=== PATIENT | female | born 1940 | race Caucasian/White ===

== ENCOUNTER 2024-09-24 05:32 | Inpatient (IN) ==
[2024-09-24] MEDS: ONDANSETRON 4 MG/2 ML VIAL IV ONE (05:53)
[2024-09-24 06:13] LABS: Basophils # (Auto) 0.02 K/mcL (0.00-0.30); Basophils % (Auto) 0.2 % (0.0-2.0); Eosinophils # (Auto) 0.15 K/mcL (0.00-0.70); Eosinophils % (Auto) 1.5 % (0.0-7.0); Hematocrit 28.3 % (34.1-44.9); Hemoglobin 9.4 g/dL (11.2-15.7); Lymphocytes # (Auto) 0.48 K/mcL (1.50-4.80); Lymphocytes % (Auto) 4.8 % (15.5-49.0); Mean Cell Volume 92.2 fL (80.0-100.0); Mean Corpuscular HGB Conc 33.2 g/dL (31.0-36.0); Mean Platelet Volume 9.4 fL (8.8-12.5); Monocytes # (Auto) 1.37 K/mcL (0.10-0.90); Monocytes % (Auto) 13.8 % (1.0-12.0); Neutrophils % (Auto) 79.3 % (38.0-78.0); Platelet Count 167 K/mcL (140-440); RBC 3.07 M/mcL (3.59-5.38); Red Cell Distribution Width 13.6 % (11.5-14.5); WBC 9.9 K/mcL (4.5-11.0)
[2024-09-24 07:13] LABS: ALT/SGPT < 5 U/L (<40); AST/SGOT 50 U/L (<32); Albumin 3.6 gm/dL (3.2-5.2); Albumin/Globulin Ratio 1.4 (1.0-2.3); Alkaline Phosphatase 71 U/L (39-117); Bilirubin,Total 0.4 mg/dL (0.1-1.0); Blood Urea Nitrogen 17 mg/dL (8-23); Calcium 9.1 mg/dL (8.6-10.4); Carbon Dioxide 24 mmol/L (22-30); Chloride 83 mmol/L (96-108); Globulin 2.5 gm/dL (2.2-3.7); Glomerular Filtration Rate 32; Glucose 89 mg/dL (70-105); Potassium 4.9 mmol/L (3.3-5.1); Sodium 118 mmol/L (133-145)
[2024-09-24 08:04] LABS: POC Calcium, Ionized 1.14 (1.16-1.32); POC Creatinine 1.6 (0.6-1.2); POC Potassium 4.7 (3.3-5.1)
[2024-09-24 10:53] LABS: Thyroid Stimulating Hormone 1.53 uIU/mL (0.27-5.01)
[2024-09-24] MEDS: oxyCODONE IR 5 MG TABLET PO ONE (11:48)
[2024-09-24 12:07] LABS: Sodium 121 mmol/L (133-145)
[2024-09-24] MEDS ORDERED: ONDANSETRON 4 MG/2 ML VIAL IV PRN (13:29)
[2024-09-24] MEDS ORDERED: POLYETHYLENE GLYCOL 3350 17 GM PACKET PO PRN (13:29)
[2024-09-24] MEDS ORDERED: BETAMETHASONE VALERATE 0.1% TOPICAL PRN (13:49)
[2024-09-24] MEDS: 0.9 % SODIUM CHLORIDE 10 ML SYRINGE IV SCH (14:15)
[2024-09-24] MEDS: PANTOPRAZOLE 40 MG VIAL IV ONE (14:15)
[2024-09-24] MEDS: METHOCARBAMOL 500 MG TABLET PO PRN (14:27)
[2024-09-24] MEDS: ACETAMINOPHEN 500 MG TABLET PO SCH (14:27)
[2024-09-24 14:33] LABS: Sodium 123 mmol/L (133-145)
[2024-09-24] MEDS: MUPIROCIN OINT 2% 22GM TOPICAL SCH (20:20)
[2024-09-24] MEDS: PANTOPRAZOLE 40 MG VIAL IV SCH (20:52)
[2024-09-24] MEDS: DOCUSATE SODIUM 100 MG CAPSULE PO SCH (20:52)
[2024-09-24] MEDS: ASPIRIN 81 MG TAB.CHEW PO SCH (20:53)
[2024-09-24] MEDS: clonazePAM 0.5 MG TABLET PO SCH (20:53)
[2024-09-24] MEDS: ENOXAPARIN 40 MG/0.4 ML SYRINGE SQ SCH (20:53)
[2024-09-24 21:27] LABS: Appearance,Urine CLOUDY (Clear); Bacteria,Urine FEW /hpf (0); Bilirubin,Urine Negative (Negative); Color,Urine YELLOW; Glucose,Urine (UA) Negative (Negative); Ketones,Urine Negative (Negative); Leukocyte Esterase,Urine 25 /uL (Negative); Mucus,Urine FEW /hpf; Nitrate,Urine Negative (Negative); Protein,Urine Negative (Negative); Specific Gravity,Urine 1.013 (1.000-1.035); Urine Blood >=1.0 mg/dL (Negative); Urine Hyaline Cast 5 /lph (0-2); Urine RBC 119 /hpf (0-3); Urine Squamous Epithelial Cell 0 /hpf (0-4); Urine Transitional Epi Cells 6 /hpf (0-2); Urine WBC 7 /hpf (0-4); Urobilinogen,Urine Negative
[2024-09-24 23:50] LABS: Sodium 122 mmol/L (133-145)
[2024-09-25 03:06] LABS: Sodium 123 mmol/L (133-145)
[2024-09-25 06:10] LABS: Basophils # (Auto) 0.01 K/mcL (0.00-0.30); Basophils % (Auto) 0.1 % (0.0-2.0); Eosinophils # (Auto) 0.14 K/mcL (0.00-0.70); Eosinophils % (Auto) 1.9 % (0.0-7.0); Hematocrit 26.6 % (34.1-44.9); Hemoglobin 8.5 g/dL (11.2-15.7); Lymphocytes # (Auto) 0.42 K/mcL (1.50-4.80); Lymphocytes % (Auto) 5.7 % (15.5-49.0); Mean Cell Volume 95.3 fL (80.0-100.0); Mean Platelet Volume 10.1 fL (8.8-12.5); Monocytes # (Auto) 1.09 K/mcL (0.10-0.90); Monocytes % (Auto) 14.8 % (1.0-12.0); Neutrophils % (Auto) 76.8 % (38.0-78.0); Platelet Count 155 K/mcL (140-440); RBC 2.79 M/mcL (3.59-5.38); Red Cell Distribution Width 14.2 % (11.5-14.5); WBC 7.4 K/mcL (4.5-11.0)
[2024-09-25 06:40] LABS: ALT/SGPT < 5 U/L (<40); AST/SGOT 51 U/L (<32); Albumin 3.1 gm/dL (3.2-5.2); Albumin/Globulin Ratio 1.1 (1.0-2.3); Alkaline Phosphatase 71 U/L (39-117); Bilirubin,Direct 0.2 mg/dL (<0.3); Bilirubin,Total 0.4 mg/dL (0.1-1.0); Blood Urea Nitrogen 18 mg/dL (8-23); Calcium 9.1 mg/dL (8.6-10.4); Carbon Dioxide 25 mmol/L (22-30); Chloride 91 mmol/L (96-108); Globulin 2.7 gm/dL (2.2-3.7); Glomerular Filtration Rate 38; Glucose 103 mg/dL (70-105); Lactate Dehydrogenase 224 U/L (135-225); Phosphorous 2.7 mg/dL (2.5-4.5); Potassium 4.5 mmol/L (3.3-5.1); Sodium 124 mmol/L (133-145); Triglycerides 81 mg/dL (<150); Uric Acid 4.2 mg/dL (2.5-8.0)
[2024-09-25 07:37] LABS: Sodium 125 mmol/L (133-145)
[2024-09-25] MEDS: GABAPENTIN 300 MG CAPSULE PO SCH (09:43)
[2024-09-25] MEDS: LOSARTAN 25 MG TABLET PO SCH (10:47)
[2024-09-25 11:54] LABS: Sodium 124 mmol/L (133-145)
[2024-09-25 15:21] LABS: Sodium 124 mmol/L (133-145)
[2024-09-25] MEDS: MIDODRINE 5 MG TABLET PO ONE (18:41)
[2024-09-26 01:00] LABS: Sodium 126 mmol/L (133-145)
[2024-09-26 06:47] LABS: Basophils # (Auto) 0.02 K/mcL (0.00-0.30); Basophils % (Auto) 0.3 % (0.0-2.0); Eosinophils # (Auto) 0.16 K/mcL (0.00-0.70); Eosinophils % (Auto) 2.6 % (0.0-7.0); Hematocrit 26.6 % (34.1-44.9); Hemoglobin 8.3 g/dL (11.2-15.7); Mean Cell Volume 97.8 fL (80.0-100.0); Mean Corpuscular HGB Conc 31.2 g/dL (31.0-36.0); Mean Platelet Volume 10.2 fL (8.8-12.5); Monocytes # (Auto) 1.06 K/mcL (0.10-0.90); Neutrophils % (Auto) 71.3 % (38.0-78.0); Platelet Count 171 K/mcL (140-440); RBC 2.72 M/mcL (3.59-5.38); Red Cell Distribution Width 14.4 % (11.5-14.5); WBC 6.3 K/mcL (4.5-11.0)
[2024-09-26 07:27] LABS: ALT/SGPT 6 U/L (<40); AST/SGOT 42 U/L (<32); Albumin 3.2 gm/dL (3.2-5.2); Albumin/Globulin Ratio 1.1 (1.0-2.3); Alkaline Phosphatase 75 U/L (39-117); Bilirubin,Direct 0.2 mg/dL (<0.3); Bilirubin,Total 0.4 mg/dL (0.1-1.0); Blood Urea Nitrogen 19 mg/dL (8-23); Calcium 9.2 mg/dL (8.6-10.4); Carbon Dioxide 25 mmol/L (22-30); Chloride 91 mmol/L (96-108); Glomerular Filtration Rate 47; Glucose 92 mg/dL (70-105); Lactate Dehydrogenase 234 U/L (135-225); Phosphorous 2.1 mg/dL (2.5-4.5); Potassium 4.5 mmol/L (3.3-5.1); Sodium 128 mmol/L (133-145); Triglycerides 86 mg/dL (<150)
[2024-09-26 07:55] LABS: Sodium 128 mmol/L (133-145)
[2024-09-26] MEDS ORDERED: KETOCONAZOLE 2% TOPICAL SCH (09:00)
[2024-09-26 14:08] LABS: Sodium 129 mmol/L (133-145)
[2024-09-26 19:28] LABS: Sodium 130 mmol/L (133-145)
[2024-09-27 06:33] LABS: Basophils # (Auto) 0.02 K/mcL (0.00-0.30); Basophils % (Auto) 0.4 % (0.0-2.0); Eosinophils # (Auto) 0.23 K/mcL (0.00-0.70); Eosinophils % (Auto) 4.2 % (0.0-7.0); Hematocrit 24.9 % (34.1-44.9); Hemoglobin 7.8 g/dL (11.2-15.7); Lymphocytes # (Auto) 0.72 K/mcL (1.50-4.80); Mean Cell Volume 96.5 fL (80.0-100.0); Mean Corpuscular HGB Conc 31.3 g/dL (31.0-36.0); Mean Platelet Volume 9.4 fL (8.8-12.5); Monocytes # (Auto) 0.87 K/mcL (0.10-0.90); Monocytes % (Auto) 15.7 % (1.0-12.0); Neutrophils % (Auto) 65.1 % (38.0-78.0); Platelet Count 196 K/mcL (140-440); RBC 2.58 M/mcL (3.59-5.38); Red Cell Distribution Width 14.4 % (11.5-14.5); WBC 5.5 K/mcL (4.5-11.0)
[2024-09-27 07:38] LABS: ALT/SGPT 6 U/L (<40); AST/SGOT 35 U/L (<32); Albumin 3.4 gm/dL (3.2-5.2); Albumin/Globulin Ratio 1.1 (1.0-2.3); Alkaline Phosphatase 78 U/L (39-117); Bilirubin,Direct < 0.2 mg/dL (0-0.3); Bilirubin,Total 0.4 mg/dL (0.1-1.0); Blood Urea Nitrogen 22 mg/dL (8-23); Calcium 9.5 mg/dL (8.6-10.4); Carbon Dioxide 28 mmol/L (22-30); Chloride 95 mmol/L (96-108); Globulin 3.1 gm/dL (2.2-3.7); Glomerular Filtration Rate 47; Glucose 95 mg/dL (70-105); Lactate Dehydrogenase 237 U/L (135-225); Phosphorous 2.3 mg/dL (2.5-4.5); Potassium 4.4 mmol/L (3.3-5.1); Sodium 133 mmol/L (133-145); Triglycerides 89 mg/dL (<150); Uric Acid 5.2 mg/dL (2.5-8.0)
== END 2024-09-27 12:30 | disposition home health service (06) | DRG 641 ==
LOC: ED 05:32 → ICU 13:00 → MEDSUR 09-26 17:10
PROVIDERS: ADMIT Student in an Organized Health Care Education/Training Program; ATTEND Student in an Organized Health Care Education/Training Program